=== PATIENT | male | born 1995 | race Caucasian/White ===

== ENCOUNTER 2022-02-27 13:19 | Emergency (ER) | payer MEDICAID ==
[~2022-02-27] VITALS: Ht 170.2 cm; Wt 82.0 kg
[2022-02-27] MEDS ORDERED: KETOROLAC 60MG/2ML VIAL IM ONE (15:30)
[2022-02-27] MEDS ORDERED: PROCHLORPERAZINE 10MG/2ML VIAL IV PRN (15:30)
[2022-02-27] MEDS ORDERED: DIPHENHYDRAMINE 50MG/ML VIAL IV ONE (15:30)
[2022-02-27] MEDS ORDERED: SUMATRIPTAN SUCCINATE 25MG TABLET PO ONE (15:30)
[2022-02-27] MEDS ORDERED: KETOROLAC 15MG/ML VIAL IV ONE (15:30)
[2022-02-27] MEDS ORDERED: SUMATRIPTAN SUCCINATE 6MG/0.5ML VIAL SUBCUT ONE (15:45)
[2022-02-27 16:00] VITALS: BP 126/88
[2022-02-27] MEDS ORDERED: SUMA50TA16 MT ×2 (16:57)
[2022-02-27] MEDS ORDERED: SUMA50TA16 PO ×3 (16:57→17:00)
== END 2022-02-27 17:20 | disposition home or self-care (01) ==
LOC: ER 13:27
DX: G43.909 Migraine, unspecified, not intractable, without status migrainosus (principal); R11.10 Vomiting, unspecified
CPT/HCPCS: 96372; 99284; J1885; J3030